=== PATIENT | female | born 1950 | race Caucasian/White ===

== ENCOUNTER 2025-01-01 08:50 | Day surgery (SDC) | payer OTHER ==
[2025-01-01] MEDS ORDERED: IOVERSOL 320 MG/ML - 50 ML VIAL IV ONE (13:30)
[2025-01-01] MEDS ORDERED: GLUCAGON 1 MG VIAL IV ONE (13:30)
[2025-01-01] MEDS ORDERED: SUGAMMADEX SODIUM 200 MG/2 ML VIAL IV ONE (14:00)
== END 2025-01-01 15:55 | disposition designated cancer center or children's hospital (05) ==
LOC: AMB-ERCP 08:50
PROVIDERS: ATTEND Internal Medicine
DX: K80.50 Calculus of bile duct without cholangitis or cholecystitis without obstruction (principal); R17 Unspecified jaundice